=== PATIENT | male | born 2000 | race Caucasian/White ===

== ENCOUNTER 2024-04-01 12:43 | Outpatient (CLI) | payer BC, SELFPAY | END 2024-04-01 12:44 | disposition home or self-care (01) | PROVIDERS: Visit Provider Physician Assistant Medical | DX: R53.83 Other fatigue (principal); Z11.4 Encounter for screening for human immunodeficiency virus [HIV]; Z11.59 Encounter for screening for other viral diseases | CPT/HCPCS: 86703; 86803 ==